=== PATIENT | male | born 1980 | race Caucasian/White ===

== ENCOUNTER 2022-10-08 04:36 | Emergency (ER) | payer SELFPAY ==
[~2022-10-08] VITALS: Ht 175.3 cm; Wt 72.0 kg
[2022-10-08 05:11] VITALS: BP 177/103
[2022-10-08] MEDS ORDERED: KETOROLAC 60MG/2ML VIAL IM ONE (09:00)
[2022-10-08] MEDS ORDERED: NAPR-681 MT (11:40)
== END 2022-10-08 12:27 | disposition home or self-care (01) ==
LOC: ER 04:36
DX: S62.112A Displaced fracture of triquetrum [cuneiform] bone, left wrist, initial encounter for closed fracture (principal); W18.30XA Fall on same level, unspecified, initial encounter; Y93.89 Activity, other specified; Y92.89 Other specified places as the place of occurrence of the external cause; Y99.8 Other external cause status
CPT/HCPCS: 29125; 73100; 73120; 73200; 99284